=== PATIENT | male | born 1985 ===

== ENCOUNTER 2022-11-05 17:00 | Emergency (ER) | payer OTHER, SELFPAY ==
[2022-11-05 17:15] VITALS: BP 137/77; PULSE 88; RESP 18; TEMP 37.1; O2SAT 96; BMI 43.7
--- NOTE | 2022-11-05 17:19 | ED.GENADULT ---
HPI - General Adult General Chief complaint: Ear Problems Stated complaint: ear infection? Time Seen by Provider: 11/05/22 17:18 Source: patient, RN notes reviewed and old records reviewed Mode of arrival: ambulatory Limitations: no limitations History of Present Illness HPI narrative: 37-year-old male presents for evaluation of 2 days of left ear pain. Denies any trauma to the ear. Denies any drainage from the ear His pain is 8/10 Pain does not radiate. He has no right ear pain Denies any difficulty hearing Related Data Previous Rx's Medication Instructions Recorded amoxicillin 500 mg tablet 500 mg PO TID #30 tabs 11/05/22 ibuprofen 600 mg tablet 600 mg PO Q6H PRN pain #20 tabs 11/05/22 Allergies Allergy/AdvReac Type Severity Reaction Status Date / Time No Known Allergies Allergy Verified 11/05/22 17:19 Review of Systems ENT: Denies ear discharge and Reports otalgia Physical Exam ED Vital Signs: Vital Signs - 24 hr 11/05/22 17:15 Temperature 98.8 F Pulse Rate 88 Respiratory Rate 18 Blood Pressure 137/77 Pulse Oximetry 96 Oxygen Delivery Method Room Air BMI result Body Mass Index 43.7 Const General: healthy appearing, comfortable, no acute distress, alert and awake Nutritional Appearance: well nourished Orientation/consciousness: patient oriented x3 HENMT Head: Yes normocephalic and Yes atraumatic Ears: TM normal on the right, left TM abnormal (TM bulging, erythematous, no perforation.) and EAC's normal Eyes Eyelids: Yes eyelids normal Conjunctivae: conjunctivae normal Sclerae: sclerae normal Corneas: corneas normal Pupils: Equal, round and reactive pupils present EOM: EOMs intact bilaterally Resp Effort & Inspection: normal respiratory effort, able to speak in complete sentences, no audible wheezes and not labored Auscultation: clear to auscultation bilaterally Cardio Rate: regular rate Rhythm: regular rhythm Skin General skin exam: no rashes or lesions noted and elasticity normal Neuro General: patient oriented x3 Cranial nerves: Yes Equal, round and reactive pupils present and Yes Bilaterally intact EOM present Cognition (Neuro): normal cognition Extrem Other: Moving all extremities well without any obvious deformities Medical Decision Making Medical Decision Making MDM Narrative: Patient has clinical acute otitis 90. No evidence of perforation. Will treat with amoxicillin. Differential Diagnosis Otitis media Otitis externa Foreign body Cerumen impaction Left ear pain Discharge Plan Discharge Clinical Impression: Otitis media Qualifiers: Chronicity: acute Laterality: left Patient Disposition: Home, Self-Care Instructions: Ear Infection (ED) Additional Instructions: Take amoxicillin 3 times daily for the next 10 days Do not stick anything in your ear including Q-tips Use ibuprofen or Tylenol for pain Follow-up with your primary doctor Prescriptions: New amoxicillin 500 mg tablet 500 mg PO TID Qty: 30 0RF ibuprofen 600 mg tablet 600 mg PO Q6H PRN (Reason: pain) Qty: 20 0RF
== END 2022-11-05 17:56 | disposition home or self-care (01) ==
PROVIDERS: Emergency Provider Emergency Medicine
DX: H66.92 Otitis media, unspecified, left ear (principal)
CPT/HCPCS: 99282; 99283

== ENCOUNTER 2023-02-07 10:13 | Emergency (ER) | payer OTHER, SELFPAY ==
[2023-02-07 10:17] VITALS: BP 142/77; PULSE 101; RESP 19; TEMP 36.6; O2SAT 99; BMI 40.8
--- NOTE | 2023-02-07 11:51 | ED_ITS ---
HPI - General Adult General Chief complaint: General Medical Stated complaint: hemmhorids unable to void Time Seen by Provider: 02/07/23 11:49 Source: patient Mode of arrival: ambulatory Limitations: no limitations History of Present Illness HPI narrative: 37-year-old male presenting to the ER for evaluation of worsening hemorrhoids for the last 2 weeks. He states that intermittently bleed when he was trying to have a bowel movement. He denies any preceding constipation. He states he has his similar history of hemorrhoids 15 years ago which resolved on their own. He states he can feel a tender bump externally and has had intermittent bleeding when he wipes only. He has not had a bowel movement a couple of days, he is afraid to eat and move his bowels. He denies any nausea, vomiting, abdominal pain. He has been using [id number] preparation H intermittently with no resolution. MD complaint: painful hemorrhoids Onset (ago): week(s) (2) Location: buttocks Radiation: non-radiation Severity: severe Quality: stabbing Pain Consistency: intermittent Relieving factors: other (laying down on side) Exacerbating factors: other (BM, sitting) Associated symptoms: other (constipation) Treatments prior to arrival: none Related Data Previous Rx's Medication Instructions Recorded amoxicillin 500 mg tablet 500 mg PO TID #30 tabs 11/05/22 ibuprofen 600 mg tablet 600 mg PO Q6H PRN pain #20 tabs 11/05/22 docusate sodium 100 mg capsule 100 mg PO BID #30 caps 02/07/23 (Colace) lidocaine HCl 2 % mucosal solution 2.5 ml topical Q4H PRN pain #100 mL 02/07/23 polyethylene glycol 3350 17 17 g PO DAILY #119 grams 02/07/23 gram/dose oral powder (ClearLax) pramoxine 1 % topical foam 1 appl NC BID #15 grams 02/07/23 (Proctofoam) Allergies Allergy/AdvReac Type Severity Reaction Status Date / Time No Known Allergies Allergy Verified 02/07/23 10:17 Review of Systems Review of Systems: Yes all other systems are reviewed and are negative [facility] Social History Social History Advance Directives: No Physical Exam ED Vital Signs: Vital Signs - 24 hr 02/07/23 10:17 Temperature 98 F Pulse Rate 101 H Respiratory Rate 19 Blood Pressure 142/77 H Pulse Oximetry 99 Oxygen Delivery Method Room Air BMI result Body Mass Index 40.8 Appearance: Alert. Oriented X3. No acute distress. HEENT: Normal external inspection Neck: Normal inspection. CVS: Normal heart rate and rhythm. Pulses normal. Respiratory: No respiratory distress. Breath sounds normal. Abdomen: morbidly obse, Soft and nontender. +BS x4 Rectal: there is a 1cm, nonthrombosed tender hemorrhoid at 4 o'clock, not bleeding. Skin: Skin warm and dry. Normal skin color. Normal skin turgor. No rashes. Extremities: No lower extremity edema. No joint swelling. Neuro/psych: Oriented X 3. Grossly normal, nonfocal Medical Decision Making Medical Decision Making MDM Narrative: 37 yo male presenting to the ER for evaluation of painful hemorrhoids x2 weeks. Intermittently bleeding. Exam is not c/w thrombosis or bleeding today. we discussed the importance of soft BMs and fiber intake. will start proctofoam, topical lidocaine for comfort. surgery referral provided if no improvement. stable for d/c home Differential Diagnosis Differential Diagnoses: The differential diagnosis associated with the presentation includes internal hemorrhoid, external hemorrhoid, thrombosed hemorrhoid, constipation, rectal tumor Prescription Management I considered prescription management with: Pain Medication and Other (corticosteroids) Chronic Conditions Patient?s care impacted by: Other (obesity, constipation) Critical Care Time Critical Care Time Critical Care Time: No Discharge Plan Discharge Clinical Impression: Hemorrhoids Qualifiers: Hemorrhoid type: unspecified Qualified Code(s): K64.9 - Unspecified hemorrhoids Patient Disposition: Home, Self-Care Instructions: Hemorrhoids (DC), Sitz Bath (DC) Additional Instructions: Use the prescribed medications as directed. It is important that you start a bowel regimen to help soften and loosen the stool to prevent worsening hemorrhoids. Increase your water intake and fiber intake. Recommend following up with your primary care doctor and General surgery for further evaluation and treatment, name and number below, call for an appointment. Take Motrin & Tylenol as needed for pain. If you develop new or worsening symptoms call 911 or come back to the ER for further evaluation. Prescriptions: New pramoxine [Proctofoam] 1 % foam 1 appl NC BID Qty: 15 1RF lidocaine HCl 2 % solution 2.5 ml topical Q4H PRN (Reason: pain) Qty: 100 0RF polyethylene glycol 3350 [ClearLax] 17 gram/dose powder 17 g PO DAILY Qty: 119 0RF docusate sodium [Colace] 100 mg capsule 100 mg PO BID Qty: 30 0RF No Action amoxicillin 500 mg tablet 500 mg PO TID Qty: 30 0RF ibuprofen 600 mg tablet 600 mg PO Q6H PRN (Reason: pain) Qty: 20 0RF Referrals: Richar Roy MD [Physician] - (hemorrhoids)
[2023-02-07] MEDS: Lidocaine 4 % Cream KIT 1 APPL TOPICAL (12:57)
== END 2023-02-07 13:00 | disposition home or self-care (01) ==
PROVIDERS: Emergency Provider Emergency Medicine
DX: K64.9 Unspecified hemorrhoids (principal)
CPT/HCPCS: 99282; 99283

== ENCOUNTER 2023-02-12 09:15 | Emergency (ER) | payer OTHER, SELFPAY ==
--- NOTE | ~2023-02-12 | XR_ITS ---
EXAMINATION: XR ABDOMEN KUB CLINICAL INDICATION: Abdominal pain for days ? Constipation COMPARISON: None available. TECHNIQUE: AP view of the abdomen. FINDINGS: The bowel gas pattern is normal with no evidence of ileus or obstruction there is no significant stool burden. No unusual soft tissue calcifications are noted. 0.9 cm sclerotic density projects over the right inferior pubic ramus, possibly a bone island. XR/XR abdomen 1V IMPRESSION: No obstruction. Findings are not consistent with constipation.
[2023-02-12 09:21] VITALS: BP 127/74; PULSE 100; RESP 18; TEMP 36.7; O2SAT 99; BMI 40.7
--- NOTE | 2023-02-12 09:48 | ED_ITS ---
HPI - General Adult General Chief complaint: General Medical Stated complaint: abd pain Time Seen by Provider: 02/12/23 09:46 Source: patient Mode of arrival: ambulatory Limitations: no limitations History of Present Illness HPI narrative: Patient is a 37-year-old male presenting to the emergency department with complaint of constipation and rectal pain. He was seen in this emergency department on 02/07 for hemorrhoids, prescribed colace and polyethylene glycol which he has been taking. States last bowel movement was the night before last, but was small amount and soft. States last normal BM was before last Saturday, 02/06. Reports he is still passing gas but it is decreased. States that he has been eating less due to feeling constipated. States he eats mainly fruits and vegetables at baseline. Denies fevers. Denies nausea or vomiting. Reports occasional small amounts of bright red blood from rectum, denies melena. MD complaint: constipation, rectal pain Onset (ago): day(s) Location: abdomen Severity: moderate Quality: dull and constant Pain Consistency: constant Relieving factors: none Exacerbating factors: other (attempting BM) Associated symptoms: denies other symptoms Treatments prior to arrival: other (as per HPI) Related Data Previous Rx's Medication Instructions Recorded amoxicillin 500 mg tablet 500 mg PO TID #30 tabs 11/05/22 ibuprofen 600 mg tablet 600 mg PO Q6H PRN pain #20 tabs 11/05/22 docusate sodium 100 mg capsule 100 mg PO BID #30 caps 02/07/23 (Colace) lidocaine HCl 2 % mucosal solution 2.5 ml topical Q4H PRN pain #100 mL 02/07/23 polyethylene glycol 3350 17 17 g PO DAILY #119 grams 02/07/23 gram/dose oral powder (ClearLax) pramoxine 1 % topical foam 1 appl PA BID #15 grams 02/07/23 (Proctofoam) hydrocortisone acetate 30 mg 30 mg PA Q12H PRN hemorrhoids #12 02/12/23 rectal suppository ea Allergies Allergy/AdvReac Type Severity Reaction Status Date / Time No Known Allergies Allergy Verified 02/07/23 10:17 Review of Systems Review of Systems: As per HPI. Yes all other systems are reviewed and are negative Constitutional: Constitutional: Reports as per HPI PMFSH Social History Social History Advance Directives: No Physical Exam ED Vital Signs: Vital Signs - 24 hr 02/12/23 09:21 Temperature 98.1 F Pulse Rate 100 Respiratory Rate 18 Blood Pressure 127/74 Pulse Oximetry 99 Oxygen Delivery Method Room Air BMI result Body Mass Index 40.7 Vital signs have been reviewed and appear to be correct. Blood pressure normal. Heart rate normal. Respiratory rate normal. Temperature normal. Oxygen saturation normal. Const General: cooperative, healthy appearing and no acute distress Orientation/consciousness: oriented to person, oriented to place, oriented to time and patient oriented x3 Limitations: no limitations HENMT Head: Yes normocephalic and Yes atraumatic Ears: external ears normal General nose exam: Normal external nose present Face and sinus: Yes face symmetric Mouth: oropharynx normal and moist mucous membranes Throat: Yes uvula midline Eyes Pupils: Equal, round and reactive pupils present Neck Neck: Yes normal visual inspection and Yes supple Resp Effort & Inspection: normal respiratory effort and able to speak in complete sentences Auscultation: clear to auscultation bilaterally Cardio Rate: regular rate Rhythm: regular rhythm Heart sounds: S1 normal heart sound present and S2 normal heart sound present GI Other: Rectal exam chaperoned by JOANNE Kwok Palpation (GI): Soft to palpation and nontender Auscultation: normoactive bowel sounds Rectal Exam - Male: Yes normal sphincter tone, Yes External hemorrhoid(s) p resent (non thrombosed) and No Rectal prolapse General: Yes no CVA tenderness Back/Spine/Pelvis Back: no CVA tenderness Skin General skin exam: elasticity normal and turgor normal Neuro General: oriented to person, oriented to place, oriented to time, patient oriented x3, moves all extremities, no focal motor deficits and CN's II-XI intact bilaterally Cranial nerves: Yes Equal, round and reactive pupils present Cognition (Neuro): normal cognition Extrem General: Yes full ROM, Yes no pedal edema and Yes no calf tenderness Psych Mental Status: mental status grossly normal Affect: normal affect Thought process: Normal thought process present Medical Decision Making Medical Decision Making MDM Narrative: Patient is a 37-year-old male presenting to the emergency department with complaint of constipation and rectal pain. On exam patient is awake, A+Ox3, VS WNL, afebrile, normal neurological exam without focal deficits, physical exam findings as above. Given reported symptoms and physical exam findings, initial differential includes constipation, internal hemorrhoid, external hemorrhoid, thrombosed hemorrhoid. Less likely rectal tumor or bowel obstruction. X-ray notable for no evidence of bowel obstruction or constipation. My interpretation is in agreement with the radiologist's interpretation. Discussed with patient that he does have an external hemorrhoid on physical exam which does not appear to be thrombosed and is likely the cause of his symptoms. Advised patient to ensure adequate fluid intake and continue to use the medications prescribed to him in the ED previously. Will prescribe hydrocortisone suppository. Return precautions discussed at bedside. Patient verbalized understanding of and agreement with plan. Differential Diagnosis Differential Diagnoses: The differential diagnosis associated with the presentation includes As per MDM Independent Interpretation I performed an independent interpretation of an: Plain X-Ray Interpretation: No evidence of obstruction or constipation. Radiology Impression Discussion of test interpretation with radiology: I have reviewed the radiologist's reading. Radiologist Impression: XR/XR abdomen 1V IMPRESSION: No obstruction. Findings are not consistent with constipation. External Record Review External record reviewed: Inpatient record, Office record and Outpatient record Prescription Management I considered prescription management with: Pain Medication Discharge Plan Discharge Clinical Impression: External hemorrhoid Patient Disposition: Home, Self-Care Instructions: Hemorrhoids (DC) Additional Instructions: You are being prescribed a hydrocortisone suppository for your rectal pain related to hemorrhoids. Please follow-up with your primary care provider this week. Continue taking the other medications prescribed to you previously from the emergency department. Return to the emergency department if you develop worsening abdominal pain, persistent vomiting, fever 100.4? F or greater, or any other concerning symptoms. Prescriptions: New hydrocortisone acetate 30 mg suppository 30 mg PA Q12H PRN (Reason: hemorrhoids) Qty: 12 0RF No Action amoxicillin 500 mg tablet 500 mg PO TID Qty: 30 0RF ibuprofen 600 mg tablet 600 mg PO Q6H PRN (Reason: pain) Qty: 20 0RF pramoxine [Proctofoam] 1 % foam 1 appl PA BID Qty: 15 1RF lidocaine HCl 2 % solution 2.5 ml topical Q4H PRN (Reason: pain) Qty: 100 0RF polyethylene glycol 3350 [ClearLax] 17 gram/dose powder 17 g PO DAILY Qty: 119 0RF docusate sodium [Colace] 100 mg capsule 100 mg PO BID Qty: 30 0RF
== END 2023-02-12 12:19 | disposition home or self-care (01) ==
PROVIDERS: Emergency Provider Emergency Medicine
DX: K64.4 Residual hemorrhoidal skin tags (principal); R10.30 Lower abdominal pain, unspecified
CPT/HCPCS: 74018; 99282; 99283

== ENCOUNTER 2023-02-13 11:49 | Outpatient (AMB) | payer OTHER, SELFPAY ==
--- NOTE | 2023-02-13 11:50 | A.OFFVIS_ITS ---
Intake Vital Signs 02/13/23 11:58 Height 6 ft Weight 300 lb 0.01 oz BMI 40.7 BP 131/69 Blood Pressure Location Rt brachial Position Sitting Pulse 78 Intake Visit Reasons: external bleeding hemorrhoids Intake Note: This patient presents for an assessment for external bleeding hemorrhoids. Patient c/o; reports moderate rectal bleeding, constipation. Quality Control Chemist Required: No Accompanied by: Self / Same As Patient Allergies No Known Allergies Allergy (Verified 02/13/23 11:56) Medication List - Last Reconciled 02/13/23 by Richar Roy MD amoxicillin 500 mg PO TID docusate sodium (Colace) 100 mg PO BID hydrocortisone acetate 30 mg [place] Q12H PRN ibuprofen 600 mg PO Q6H PRN lidocaine HCl 2% 2.5 mL topical Q4H PRN polyethylene glycol 3350 (ClearLax) 17 grams PO DAILY pramoxine 1% (Proctofoam) 1 appl [place] BID HPI external bleeding hemorrhoids HPI Details 37-year-old male referred for hemorrhoi ds. He went to the ER yesterday because of passage of bright blood per rectum with BMs. He had been constipated as well. He was noted to have hemorrhoids so he was referred to me. He does state he feels a lump outside his anus. He also says that he has has history of constipation. He describes occasional pain in the anus. [facility] Medical History (Updated 02/13/23 @ 12:03 by Richar Roy MD) External hemorrhoid, bleeding Surgical History No pertinent past surgical history Review of Systems Const Denies chills and Denies fever(s) Card Denies chest pain, Denies dyspnea and Denies dyspnea on exertion Resp Denies cough, Denies dyspnea and Denies dyspnea on exertion GI Reports hematochezia and Denies change in bowel habits Denies hematuria and Denies difficulty urinating Musc Denies back pain and Denies limited range of motion Neuro Denies focal weakness and Denies convulsions Psych Denies depression and Denies mood swings Physical Exam Vital Signs: Last Vital Signs Pulse 78 02/13/23 11:58 BP 131/69 02/13/23 11:58 BMI result Body Mass Index 40.7 Const General: comfortable and no acute distress Orientation/consciousness: patient oriented x3 Neck Neck: Yes no lymphadenopathy Resp Auscultation: clear to auscultation bilaterally Cardio Rhythm: regular rhythm GI Other: Rectal exam shows a large external hemorrhoid on the right side Palpation (GI): Soft to palpation, nontender and no guarding Neuro General: patient oriented x3 Office Procedures Anoscopy He was in mary-knife position. The anoscope was gently inserted. A full examination of the anal canal was done. He had this large external hemorrhoid on the right side. There were no other lesions seen in the anal canal. There was no fissure any ulceration. There was no induration on digital exam. There was no bleeding. [id number] Assessment & Plan Assessment & Plan (1) External hemorrhoid, bleeding: Code(s): K64.4 - Residual hemorrhoidal skin tags Plan: He has this moderate size external hemorrhoid as described above. I had a long discussion with him about the option of proceeding with hemorrhoidectomy. I explained to him the technique of this procedure. I reviewed the risks including but not limited to bleeding, infections, postop pain, as well as the benefits and alternatives. I also reviewed with him what to expect postoperatively especially with regards to care. He stated that he has symptoms are not severe at this time. He wanted to hold off on any surgical intervention. Says he will try to changes diet and take more fiber . I did explain to him that if he feels that his symptoms are worse or he wants to be re-evaluated, he should come back to the office. Coding Level of Care Code New Pt Level 3 (35790) Diagnoses External hemorrhoid, bleeding K64.4 CPT Codes Details - CPT: 41274-[id number] ([id number])
[2023-02-13 11:58] VITALS: BP 131/69; PULSE 78; BMI 40.7
== END 2023-02-13 12:07 | disposition home or self-care (01) ==
PROVIDERS: Visit Provider Surgery
DX: K64.4 Residual hemorrhoidal skin tags (principal)
CPT/HCPCS: 46600; 99203

== ENCOUNTER → 2023-02-13 11:49 | Outpatient (BNVA) | payer OTHER, SELFPAY | PROVIDERS: Visit Provider Surgery | DX: K64.4 Residual hemorrhoidal skin tags (principal) | CPT/HCPCS: 46600 ==